=== PATIENT | male | born 1955 | race Caucasian/White ===

== ENCOUNTER 2019-04-06 19:48 | Emergency (ER) | payer OTHER ==
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
[2019-04-06] MEDS ORDERED: DIPH,PERTUSS(ACELL),TET VAC/PF 0.5 ML DISP.SYRIN IM ONE (21:08)
[2019-04-06 22:11] VITALS: BP 138/88
== END 2019-04-06 21:30 | disposition home or self-care (01) ==
LOC: ED 19:48
DX: T22.211A Burn of second degree of right forearm, initial encounter (principal); X16.XXXA Contact with hot heating appliances, radiators and pipes, initial encounter
CPT/HCPCS: 90715